=== PATIENT | female | born 1985 | race Two or more races ===

== ENCOUNTER 2025-02-28 21:40 | Emergency (ER) | payer OTHER, MEDICAID, SELFPAY ==
[2025-02-28 21:44] VITALS: BP 132/85; PULSE 99; RESP 20; TEMP 36.7; O2SAT 96; BMI 33.6
--- NOTE | 2025-02-28 22:11 | PD.EDVAGBL ---
ED OB Contraction Preg RMI/HPI General Chief complaint: General Adult/Misc Complain Stated complaint: POSS RETAINED TAMPON 6 DAYS Time Seen by Provider: 02/28/25 22:50 Arrival date/time: 02/28/25 21:40 RME / HPI RME / HPI Narrative: This section includes all my notes and documentations, including HPI, PE, and ED course. Sheldon Cartwright MD HPI: 39yo female here with possible tampon stuck in her vagina. Patient's last day of her period was 02/23/25, and thinks she may have left a tampon inside. She has since developed foul smelling vaginal discharge, pelvic pain. No fever. No other complaints reported. ROS: All negative except as documented in HPI. Physical Exam: General: Alert and oriented. No acute distress when remaining still. Eyes: Conjunctivae and lids clear. ENT: No nasal congestion. Neck: Supple. Heart: RRR. Lungs: No respiratory distress. Good air movement. No rhonchi, wheezing, rales. Abdomen: Soft and nontender. Normal bowel sounds. No distension. No rebound or guarding. Back: No CVA tenderness. Skin: Warm and dry. Neuro: Alert and oriented X 3. Speculum: No FB noted. No cervical motion tenderness. Foul-smelling discharge noted. I reviewed all diagnostic test results. My interpretation of the chest x-ray is NAD. My review of the transvaginal US report is NAD. Blood tests unremarkable. UA unremarkable. At this point, diagnoses include vaginitis. Patient requested being treated for all causes of STD. Treatment here included IV fluid, oral potassium, Morphine 4 mg IV, Zofran 4 mg IV, oral Diflucan 200 mg, oral Flagyl 2000 mg, Rocephin 1 g IV, and oral azithromycin 1000 mg. She felt much better. Recommend outpatient follow-up. Based on my best medical judgment, made decision no further evaluation or treatment indicated at this time. Patient understands and agrees to the discharge instructions customized and printed, see below. Discharge Instructions from Dr. Cartwright printed for you: 1. As you requested, you were treated for all common causes of vaginitis. Including gonorrhea and chlamydia and trichomonas and bacterial vaginosis and yeast. 2. There is no foreign body in the vagina. 3. There is no serious infection, such as sepsis. 4. See a private doctor on 03/04/2025 for recheck and further care. Ask to review all test results and official radiology reports, to make sure you receive all necessary follow-ups and monitoring. If needed, ask for referral to see head of ethics and compliance. 5. Seek immediate medical care with worsening or with any concerns. Sheldon Cartwright MD Related Data Home Medications ?Medication ?Instructions ?Recorded ?Confirmed docusate sodium 100 mg capsule 100 mg PO BID 06/21/18 06/21/18 ferrous sulfate 325 mg (65 mg 325 mg PO BID 06/21/18 06/26/18 iron) tablet (iron) fluticasone propionate 50 2 spray intranasal QDAY 06/21/18 06/21/18 mcg/actuation nasal spray,suspension loratadine 10 mg tablet (Claritin) 10 mg PO QDAY 06/21/18 06/26/18 vit no.95-ferrous 1 tab PO QDAY 06/21/18 06/26/18 fumarate 28 mg-folic acid 800 mcg tablet () Previous Rx's ?Medication ?Instructions ?Recorded hydrocodone 5 mg-acetaminophen 300 1 tab PO QID PRN headache #20 tabs 25/18 mg tablet (Vicodin) hydrocodone 5 mg-acetaminophen 300 1 tab PO QID PRN pain #20 tabs 06/29/18 mg tablet (Vicodin) clotrimazole 1 % vaginal cream See Rx Instructions .Route 02/23/20 (Gyne-Lotrimin 7) .COMPLEX #45 grams fluconazole 150 mg tablet 150 mg PO .x1 #1 tab 02/23/20 (Diflucan) nystatin 100,000 unit/gram topical 1 applicatio topical BID #30 grams 02/23/20 cream metoclopramide HCl 10 mg tablet 10 mg PO .tid prn PRN nausea and 12/19/20 (Reglan) vomiting #20 tabs pantoprazole 40 mg tablet,delayed 40 mg PO QDAY #14 tabs 12/19/20 release (Protonix) hydrocodone 5 mg-acetaminophen 325 1 tab PO BID PRN pain #4 tabs 02/15/24 mg tablet Allergies Allergy/AdvReac Type Severity Reaction Status Date / Time ibuprofen Allergy Severe lip Verified 02/15/24 08:35 swelling/DIFF BREATHING Review of Systems Review of Systems Systems Reviewed: All systems reviewed, normal except as documented Past Medical History Past Medical History NEUROLOGIC: Positive Neurological Disorders and Migraine; Negative Seizures CARDIAC: Positive Cardiac Disorders, Hypercholesterolemia and Hypertension; Negative Congestive Heart Failure RESPIRATORY: Positive Asthma and Bronchitis; Negative Chronic Obstructive Pulmonary Disease (COPD) GASTROINTESTINAL: Positive Gastrointestinal Disorders and Obesity; Negative Hepatitis or Colorectal Cancer GENITOURINARY: Negative Genitourinary Disorders, Renal Disease or Prostate Cancer REPRODUCTIVE: Positive Previous Pregnancies; Negative Breast Cancer, Endometriosis, Genital Herpes, Gonorrhea, Pelvic Inflammatory Disease, Syphilis, Testicular Cancer or Uterine Prolapse MUSCULOSKELETAL: Negative Musculoskeletal Disorders or Bone Cancer ENDOCRINE: Positive Endocrine Disorders and Diabetes Mellitus Type 2; Negative Diabetes Mellitus Type 1 HEMATOLOGIC: Positive Blood Disorders and Anemia PSYCHO/SOCIAL: Positive Depression and Anxiety OTHER HISTORY: Positive Hospitalization and Chicken Pox; Negative Autoimmune Disease, Blood Transfusions, Blood Transfusion Reaction, Anesthesia Reactions, Organ Transplant, Chemotherapy, Radiation Therapy, Hyperbaric Therapy, MRSA, VRSA, Vancomycin-Resistant Enterococci, Human Immunodeficiency Virus (HIV), Measles, Mumps, Rubella ([place] Measles), Pertussis, Clostridium Difficile, Breast Cancer, Cervical Cancer, Colorectal Cancer, Lung Cancer, Ovarian Cancer, Prostate Cancer or Testicular Cancer Family History FAMILY HISTORY: Positive Family Cardiac Disorders and Family Surgery; Negative Family Psychiatric Problems, Family Respiratory Disorders, Family Gastrointestinal Problems, Family Cancer or Family Anesthesia Reaction Surgical History SURGICAL: Negative Section or Organ Transplant Social History SMOKING STATUS: Never smoker SECOND HAND EXPOSURE: No ED Exam Narrative Physical exam: As noted in HPI. Course Quality Measures none Orders Category Date Time Status Saline [Insert IV] NOW Care 02/28/25 22:58 Active Straight [In and Out Catheter] X1 Care 02/28/25 22:58 Active US transvaginal Stat Exams 03/01/25 01:14 Ordered XR chest 1V portable Stat Exams 02/28/25 22:52 Completed BMP [Basic Metabolic Panel] Stat Lab 02/28/25 23:17 Completed Blood Culture (Lab) Stat Lab 02/28/25 23:17 Received CBC Stat Lab 02/28/25 23:17 Completed CRP [C-Reactive Protein] Stat Lab 02/28/25 23:17 Completed ESR [Sed Rate (ESR)] Stat Lab 02/28/25 23:17 Completed HCG,Qualitative Serum Stat Lab 02/28/25 23:17 Completed Lactate (Lactic Acid) Stat Lab 02/28/25 23:17 Completed Lactic Acid, 3 HR Stat Lab 03/01/25 03:10 Received Magnesium Stat Lab 02/28/25 23:17 Completed Procalcitonin Stat Lab 02/28/25 23:17 Completed UA, C/S IF [Urinalysis, C/S if Indicated] Stat Lab 03/01/25 00:35 Completed Azithromycin Po [Zithromax PO] Med 03/01/25 02:49 Discontinued 1,000 mg PO X1 ONE Fluconazole [Diflucan] Med 03/01/25 02:49 Discontinued 200 mg PO X1 ONE KCL 10% Liq UDC 15 ML Med 03/01/25 00:22 Discontinued 40 meq PO X1 ONE Morphine Inj Med 02/28/25 22:58 Discontinued 4 mg IVP X1 ONE Ondansetron Inj [Zofran Inj] Med 02/28/25 22:58 Discontinued 4 mg IVP X1 ONE Sodium Chloride 0.9% 1000 ml [Ns] 1,000 ml Med 02/28/25 22:58 Discontinued IV 999 mls/hr Sodium Chloride 0.9% 1000 ml [Ns] 1,000 ml Med 03/01/25 00:43 Discontinued IV 999 mls/hr cefTRIAXone/D5w 1gm IV premix [Rocephin/D5w 1gm IV Med 03/01/25 02:49 Discontinued premix] 1 gm in 50 ml IV X1 metroNIDAZOLE [Flagyl] Med 03/01/25 02:49 Discontinued 2,000 mg PO X1 ONE Vital Signs Vital signs: Vital Signs Temperature 98.0 F 02/28/25 21:44 Pulse Rate 99 02/28/25 21:44 Respiratory Rate 20 02/28/25 21:44 Blood Pressure 132/85 H 02/28/25 21:44 Pulse Oximetry (%) 96 02/28/25 21:44 Oxygen Delivery Method Room Air 02/28/25 21:44 Vaginal Bleeding MDM Narrative MDM Narrative: 39yo female here with possible tampon stuck in her vagina. Patient's last day of her period was 02/23/25, and thinks she may have left a tampon inside. She has since developed foul smelling vaginal discharge, pelvic pain. No fever. No other complaints reported. Patient data External records reviewed:: [facility] previous records (Per chart review, patient was seen here on 04/19/23 for acute foreign body of vagina.) Clinical information provided by:: patient Social determinants that could affect healthcare access:: none Patient has the following chronic illnesses:: DM, HTN, HLD How is presenting disease/condition affected by chronic disease/condition?: uneffected by Evaluation data The following diagnostics were reviewed and interpreted by me:: lab results and radiology exam(s) Lab and/or radiology exams considered but not ordered:: none Interpretation Summary: I reviewed all diagnostic test results. My interpretation of the chest x-ray is NAD. My review of the transvaginal US report is NAD. Blood tests unremarkable. UA unremarkable. Medications / Prescriptions Medications or Prescriptions considered but not ordered:: none Medication administrations:: Medication Administration History Discontinued Medications Azithromycin (Azithromycin 250 Mg Tablet) 1,000 mg PO X1 ONE Stop: 03/01/25 02:50 Last Admin: 03/01/25 03:17 Dose: 1,000 mg Documented By: JOHNNY Fluconazole (Fluconazole 100 Mg Tablet) 200 mg PO X1 ONE Stop: 03/01/25 02:50 Last Admin: 03/01/25 03:27 Dose: 200 mg Documented By: JOHNNY Sodium Chloride (Ns) 1,000 mls @ 999 mls/hr IV .Q1H1M ONE Stop: 02/28/25 23:58 Last Infusion: 03/01/25 01:01 Dose: Infused Documented By: Admin: 03/01/25 00:00 Dose: 999 mls/hr Documented By: JOHNNY Sodium Chloride (Ns) 1,000 mls @ 999 mls/hr IV .Q1H1M ONE Stop: 03/01/25 01:43 Last Infusion: 03/01/25 02:24 Dose: Infused Documented By: Admin: 03/01/25 01:23 Dose: 999 mls/hr Documented By: JOHNNY Ceftriaxone Sodium/Dextrose (Rocephin/D5w 1gm Iv Premix) 1 gm in 50 mls @ 100 mls/hr IV X1 ONE Stop: 03/01/25 03:18 Last Admin: 03/01/25 03:17 Dose: 100 mls/hr Documented By: JOHNNY Metronidazole (Metronidazole 250 Mg Tablet) 2,000 mg PO X1 ONE Stop: 03/01/25 02:50 Last Admin: 03/01/25 03:18 Dose: 2,000 mg Documented By: JOHNNY Morphine Sulfate (Morphine Sulf Inj 10 Mg/Ml Vial) 4 mg IVP X1 ONE Stop: 02/28/25 22:59 Last Admin: 02/28/25 23:58 Dose: 4 mg Documented By: CG Ondansetron HCl (Ondansetron Inj 2 Mg/Ml Inj 2 Ml) 4 mg IVP X1 ONE; Protocol Stop: 02/28/25 22:59 Last Admin: 02/28/25 23:59 Dose: 4 mg Documented By: CG Potassium Chloride (Potassium Chloride 10% 20 Meq/15 Ml Udc) 40 meq PO X1 ONE Stop: 03/01/25 00:23 Last Admin: 03/01/25 01:22 Dose: 40 meq Documented By: CG Treatment here included IV fluid, oral potassium, Morphine 4 mg IV, Zofran 4 mg IV, oral Diflucan 200 mg, oral Flagyl 2000 mg, Rocephin 1 g IV, and oral azithromycin 1000 mg. Consultations Consultation(s) initiated? (list below): No Diagnosis Vaginal Bleeding Differential Diagnosis: missed , threatened , dysfunctional uterine bleeding, menometrorrhagia, incomplete , ectopic without intrauterine , vaginal bleeding and other (Vaginitis, ovarian torsion, PID) Most likely diagnosis given after review of the tests above:: Vaginitis Admission Indicated Admission indicated?: not indicated Explain why admission is indicated or not indicated:: With significant improvement and no condition needing emergent intervention, there was no indication for admission. Admission Request Was there a request for admission?: No Disposition Plan Disposition Plan: Discharge Discharge Attestation Discharge Attestation: The patient and all family members were given an opportunity to ask questions and understood the discharge instructions. Discharge instructions specifically effects, indications for sooner follow up or return to the emergency department, and the expected course of current diagnosis. Patient condition: Stable Discharge Plan Plan Patient Disposition: HOME (Self Care) Prescriptions/Referrals Prescriptions/Med Rec: No Action ferrous sulfate [iron] 325 mg (65 mg iron) Tablet 325 mg PO BID docusate sodium 100 mg Capsule 100 mg PO BID fluticasone propionate 50 mcg/actuation Alliance,Suspension 2 spray INTRANASAL QDAY loratadine [Claritin] 10 mg Tablet 10 mg PO QDAY PNV cmb#95-ferrous fumarate-FA [] 28 mg iron- 800 mcg Tablet 1 tab PO QDAY hydrocodone-acetaminophen [Vicodin] 5-300 mg tablet 1 tab PO QID MDD 4 PRN (Reason: pain) Qty: 20 0RF hydrocodone-acetaminophen [Vicodin] 5-300 mg tablet 1 tab PO QID MDD 4 PRN (Reason: headache) Qty: 20 0RF fluconazole [Diflucan] 150 mg tablet 150 mg PO .x1 Qty: 1 0RF clotrimazole [Gyne-Lotrimin 7] 1 % cream See Rx Instructions .ROUTE .COMPLEX Qty: 45 0RF Rx Instructions: 1 applicator full PV QD x 7 days nystatin 100,000 unit/gram cream 1 applicatio TOPICAL BID Qty: 30 0RF metoclopramide HCl [Reglan] 10 mg tablet 10 mg PO .tid prn PRN (Reason: nausea and vomiting) Qty: 20 0RF pantoprazole [Protonix] 40 mg tablet,delayed release (DR/EC) 40 mg PO QDAY Qty: 14 0RF hydrocodone-acetaminophen 5-325 mg tablet 1 tab PO BID MDD 10mg PRN (Reason: pain) Qty: 4 0RF Referrals: No Primary/Family,Physician [Primary Care Provider] - In 1 week Problem List Clinical Impression: Vaginitis Patient/Caregiver Discharge Instructions Discharge Activity: activity as tolerated Education Materials: ED Pelvic Pain, Unknown Cause Additional Instructions: Discharge Instructions from Dr. Cartwright printed for you: 1. As you requested, you were treated for all common causes of vaginitis. Including gonorrhea and chlamydia and trichomonas and bacterial vaginosis and yeast. 2. There is no foreign body in the vagina. 3. There is no serious infection, such as sepsis. 4. See a private doctor on 03/04/2025 for recheck and further care. Ask to review all test results and official radiology reports, to make sure you receive all necessary follow-ups and monitoring. If needed, ask for referral to see head of ethics and compliance. 5. Seek immediate medical care with worsening or with any concerns. Print Language: [place]er Stand Alone Forms: [employer]i Award Info., Patient Portal Info Letter
--- NOTE | 2025-02-28 22:52 | XR_ITS ---
Examination: AP chest single view Technique AP portable upright chest single view Date and time: February 28, 2025 at 1110 hours Comparison April 11, 2007 INDICATIONS: Shortness of breath chest pain today. FINDINGS: No significant cardiac enlargement No pneumonia or pulmonary edema Lordotic chest IMPRESSION: No active disease
[2025-02-28 23:24] LABS: Lactate (Lactic Acid) 2.5 mMol/L (0.4-2.0)
[2025-02-28 23:27] LABS: Basophils # (Auto) 0.0 Thou/mm3 (0.0-0.2); Basophils % (Auto) 0 % (0-2.5); Eosinophils # (Auto) 0.1 Thou/mm3 (0.0-0.5); Eosinophils % (Auto) 1 % (0-10); Hematocrit 37.0 % (36.0-46.0); Hemoglobin 13.5 g/dL (12.0-16.0); Immature Granulocytes Auto 0.03 Thou/mm3 (0.00-0.00); Lymphocytes # (Auto) 4.1 Thou/mm3 (1.0-4.8); Lymphocytes % (Auto) 49 % (10-50); Mean Corpuscular HGB Conc 36.5 g/dl (31.0-37.0); Mean Corpuscular Hemoglobin 31.0 pg (25.0-35.0); Mean Corpuscular Volume 85 fL (80-100); Monocytes # (Auto) 0.5 Thou/mm3 (0.0-0.8); Monocytes % (Auto) 6 % (0-12); Neutrophils # (Auto) 3.7 Thou/mm3 (1.8-7.7); Neutrophils % (Auto) 44 % (37-80); Nucleated Red Blood Cell # 0.00 Thou/mm3 (0.00-0.00); Nucleated Red Blood Cell % 0 /100 WBC (0); Platelet Count 295 Thou/mm3 (140-440); RDW Standard Deviation 41.4 fL (36.4-46.3); Red Blood Count 4.35 Miln/mm3 (4.00-5.20); White Blood Count 8.4 Thou/mm3 (3.6-11.0)
[2025-02-28 23:55] VITALS: BP 142/81; PULSE 83; RESP 18; TEMP 36.8; O2SAT 93
[2025-02-28] MEDS: MORPHINE SULF INJ 10 MG/ML VIAL 4 MG IVP (23:58)
[2025-02-28 23:59] LABS: Sed Rate (ESR) 11 mm/hr (0-20)
[2025-02-28] MEDS: ONDANSETRON INJ 2 MG/ML INJ 2 ML 4 MG IVP (23:59)
[2025-03-01 00:02] LABS: HCG,Qualitative Serum Negative
[2025-03-01 00:06] LABS: Anion Gap 12 (7-16); BUN/Creatinine Ratio 13 Ratio (12-20); Blood Urea Nitrogen 9 mg/dL (9-23); C-Reactive Protein < 0.5 mg/dL (0.0-0.9); Calcium 9.2 mg/dL (8.3-10.6); Carbon Dioxide 24.3 mMol/L (20.0-31.0); Chloride 102 mMol/L (98-107); Creatinine (Component) 0.7 mg/dL (0.6-1.3); Estimated Creatinine Clearance 103.9 mL/min (>60); Glucose 209 mg/dL (74-106); Magnesium 1.7 mg/dL (1.6-2.6); Osmolality,Calculated 280 (275-295); Potassium 3.2 mMol/L (3.4-5.1); Procalcitonin 0.05 ng/ml (0.0-0.49); Sodium 138 mMol/L (136-145); eGFR > 60 See Note
[2025-03-01 00:43] LABS: Collection Type, Urine Clean Catch
[2025-03-01 00:49] LABS: Bilirubin,Urine Negative (Negative); Blood,Urine Negative (Negative); Clarity,Urine Clear (Clear/Hazy); Color,Urine Lt-Yellow (Lt Yel-Yel); Culture Indicated,Urine Not Indicated; Glucose, Urine 4+ (Negative); Ketones,Urine Negative (Negative); Leukocyte Esterase,Urine Negative (Negative); Nitrite,Urine Negative (Negative); PH,Urine 6.0 (5.0-7.0); Protein,Urine Negative (Neg - Trace); RBC,Urine 1 /hpf (0-3); Specific Gravity,Urine 1.040 (1.001-1.035); Squamous Epithelial Cell,Urine 2 /hpf (0-5); Urobilinogen,Urine Negative mg/dL (0.0-1.0); WBC,Urine 1 /hpf (0-5)
--- NOTE | 2025-03-01 01:14 | XR_ITS ---
Examination: Transvaginal ultrasound of the pelvis, complete Technique: Transvaginal sonographic images pelvis performed using david scale imaging Exam date and time: March 01, 2025 0231 hours INDICATIONS: Fever pelvic pain beginning February 17, 2025 FINDINGS: Uterus 8.2 cm endometrial stripe 0.6 cm No uterine mass or intrauterine gestation Right ovary 3.7 cm arterial flow Left ovary is obscured by bowel gas IMPRESSION: No uterine mass or intrauterine gestation Limited study, left ovary not visualized.
[2025-03-01] MEDS: POTASSIUM CHLORIDE 10% 20 MEQ/15 ML UDC 40 MEQ PO (01:22)
[2025-03-01] MEDS: SODIUM CHLORIDE 0.9% 1000 ML 1,000 ML 999 ML IV ×2 (01:23)
[2025-03-01 02:24] LABS: Reflex Lactate? Y
[2025-03-01] MEDS: cefTRIAXone/D5w 1gm IV premix 1 GM/50 ML BAG IV (03:17)
[2025-03-01] MEDS: AZITHROMYCIN 250 MG TABLET 1000 MG PO (03:17)
[2025-03-01 03:25] LABS: Lactic Acid, 3 HR 1.2 mMol/L (0.4-2.0)
[2025-03-01] MEDS: FLUCONAZOLE 100 MG TABLET 200 MG PO (03:27)
[2025-03-01 04:16] VITALS: BP 124/81; PULSE 81; RESP 16; O2SAT 95
--- NOTE | 2025-03-01 04:16 | PRELIM_ITS ---
Pelvic ultrasound ( transvaginal) with Doppler and wave Doppler spectral analysis. March 01, 2025 0231 hours Clinical history: Pelvic pain and vaginal FB. Technique: Real-time, grayscale, transabdominal and transvaginal pelvic ultrasound was performed using Duplex scanning including arterial inflow, venous outflow, color and spectral Doppler. Comparison: None available at the time of this report Findings: The uterus is normal in size measuring 8.2 x 4.6 x 5.9 cm. The endometrium is unremarkable and measures 0.6 cm. Nabothian cysts noted. The right ovary measures 3.7 x 1.6 x 2.8 cm and is unremarkable. The left ovary was not visualized. The right ovary demonstrates color flow and spectral waveforms on Doppler evaluation. There is no adnexal mass. There is no free fluid on the submitted images. Impression: Left ovary was not visualized, consider correlation with MRI if clinically indicated. Nabothian cysts noted. Report Electronically Signed By: Filemon Vogel 03/01/2025 4:15:54 AM [EST]
== END 2025-03-01 04:17 | disposition home or self-care (01) ==
PROVIDERS: Emergency Provider Emergency Medicine
DX: N76.0 Acute vaginitis (principal); R06.02 Shortness of breath; R07.9 Chest pain, unspecified
CPT/HCPCS: 36415; 71045; 76830; 80048; 81001; 83605; 83735; 84145; 84703; 85025; 85652; 86140; 87040; 96361; 96365; 96375; 99284; J0696; J2270; J2405; J7030; A9270

== ENCOUNTER 2025-03-31 04:16 | Emergency (ER) | payer OTHER, MEDICAID, SELFPAY ==
[2025-03-31 04:18] VITALS: BP 141/87; PULSE 92; RESP 18; TEMP 36.5; O2SAT 94; BMI 33.6
--- NOTE | 2025-03-31 04:52 | PD.EDDENTL ---
ED Dental RME/HPI General Chief complaint: Dental/Oral/Throat Stated complaint: PAIN L SIDE OF FACE/L UPPER MOLAR Time Seen by Provider: 03/31/25 04:34 Arrival date/time: 03/31/25 04:16 This is a case of 40-year-old female with no medical history came in in the emergency room due to dental pain mostly on the central tooth and left upper molar for 4 days patient states that her dental appointment is in 2 weeks worsening of the pain this patient decided to sought consult here in the emergency room Limitations: no limitations Related Data Home Medications ?Medication ?Instructions ?Recorded ?Confirmed docusate sodium 100 mg capsule 100 mg PO BID 06/21/18 06/21/18 ferrous sulfate 325 mg (65 mg 325 mg PO BID 06/21/18 06/26/18 iron) tablet (iron) fluticasone propionate 50 2 spray intranasal QDAY 06/21/18 06/21/18 mcg/actuation nasal spray,suspension loratadine 10 mg tablet (Claritin) 10 mg PO QDAY 06/21/18 06/26/18 vit no.95-ferrous 1 tab PO QDAY 06/21/18 06/26/18 fumarate 28 mg-folic acid 800 mcg tablet () Previous Rx's ?Medication ?Instructions ?Recorded hydrocodone 5 mg-acetaminophen 300 1 tab PO QID PRN headache #20 tabs 25/18 mg tablet (Vicodin) hydrocodone 5 mg-acetaminophen 300 1 tab PO QID PRN pain #20 tabs 06/29/18 mg tablet (Vicodin) clotrimazole 1 % vaginal cream See Rx Instructions .Route 02/23/20 (Gyne-Lotrimin 7) .COMPLEX #45 grams fluconazole 150 mg tablet 150 mg PO .x1 #1 tab 02/23/20 (Diflucan) nystatin 100,000 unit/gram topical 1 applicatio topical BID #30 grams 02/23/20 cream metoclopramide HCl 10 mg tablet 10 mg PO .tid prn PRN nausea and 12/19/20 (Reglan) vomiting #20 tabs pantoprazole 40 mg tablet,delayed 40 mg PO QDAY #14 tabs 12/19/20 release (Protonix) hydrocodone 5 mg-acetaminophen 325 1 tab PO BID PRN pain #4 tabs 02/14/ mg tablet clindamycin HCl 300 mg capsule 300 mg PO Q6H 10 days #40 caps 03/31/25 hydrocodone 5 mg-acetaminophen 325 1 tab PO Q6H PRN pain #10 tabs 03/31/25 mg tablet Allergies Allergy/AdvReac Type Severity Reaction Status Date / Time ibuprofen Allergy Severe lip Verified 03/31/25 04:22 swelling/DIFF BREATHING Review of Systems Review of Systems Systems Reviewed: All systems reviewed, normal except as documented Constitutional Constitutional: Reports system reviewed and no additional complaints, except as documented and Reports as per HPI Cardiovascular Cardiovascular: Reports system reviewed and no additional complaints, except as documented and Reports as per HPI Respiratory Respiratory: Reports system reviewed and no additional complaints, except as documented and Reports as per HPI Gastrointestinal Gastrointestinal: Reports system reviewed and no additional complaints, except as documented and Reports as per HPI Musculoskeletal Musculoskeletal: Reports system reviewed and no additional complaints, except as documented and Reports as per HPI Neurologic Neurologic: Reports system reviewed and no additional complaints, except as documented and Reports as per HPI Past Medical History Past Medical History NEUROLOGIC: Positive Neurological Disorders and Migraine; Negative Seizures CARDIAC: Positive Cardiac Disorders, Hypercholesterolemia and Hypertension; Negative Congestive Heart Failure RESPIRATORY: Positive Asthma and Bronchitis; Negative Chronic Obstructive Pulmonary Disease (COPD) GASTROINTESTINAL: Positive Gastrointestinal Disorders and Obesity; Negative Hepatitis or Colorectal Cancer GENITOURINARY: Negative Genitourinary Disorders, Renal Disease or Prostate Cancer REPRODUCTIVE: Positive Previous Pregnancies; Negative Breast Cancer, Endometriosis, Genital Herpes, Gonorrhea, Pelvic Inflammatory Disease, Syphilis, Testicular Cancer or Uterine Prolapse MUSCULOSKELETAL: Negative Musculoskeletal Disorders or Bone Cancer ENDOCRINE: Positive Endocrine Disorders and Diabetes Mellitus Type 2; Negative Diabetes Mellitus Type 1 HEMATOLOGIC: Positive Blood Disorders and Anemia PSYCHO/SOCIAL: Positive Depression and Anxiety OTHER HISTORY: Positive Hospitalization and Chicken Pox; Negative Autoimmune Disease, Blood Transfusions, Blood Transfusion Reaction, Anesthesia Reactions, Organ Transplant, Chemotherapy, Radiation Therapy, Hyperbaric Therapy, MRSA, VRSA, Vancomycin-Resistant Enterococci, Human Immunodeficiency Virus (HIV), Measles, Mumps, Rubella ([place] Measles), Pertussis, Clostridium Difficile, Breast Cancer, Cervical Cancer, Colorectal Cancer, Lung Cancer, Ovarian Cancer, Prostate Cancer or Testicular Cancer Family History FAMILY HISTORY: Positive Family Cardiac Disorders and Family Surgery; Negative Family Psychiatric Problems, Family Respiratory Disorders, Family Gastrointestinal Problems, Family Cancer or Family Anesthesia Reaction Surgical History SURGICAL: Negative Section or Organ Transplant Social History SMOKING STATUS: Never smoker SECOND HAND EXPOSURE: No ED Exam General Limitations: Present no limitations General appearance: Present alert, in no apparent distress and other (Is awake alert oriented not in distress not toxic looking) Head Head exam: Present atraumatic, normocephalic and normal inspection Eye Eye exam: Present normal appearance, PERRL and EOMI ENT ENT exam: Present normal exam, normal oropharynx and mucous membranes moist Expanded ENT Exam Mouth exam: Present normal external inspection and tongue normal; Absent drooling, trismus, lip swelling, tongue elevation, tongue swelling or laceration Teeth exam: Present dental tenderness # Teeth numbered:  1. Dental Tenderness (Tooth number 03/23/2010 1112 mild tenderness mild gum swelling no abscess no cellulitis) Neck Neck exam: Present normal inspection, full ROM and trachea midline Chest Chest inspection: Present normal inspection and symmetric chest wall rise Respiratory Respiratory exam: Present normal lung sounds bilaterally; Absent respiratory distress, wheezes, stridor, accessory muscle use or prolonged expiratory phase Cardiovascular Cardiovascular exam: Present regular rate, normal rhythm and normal heart sounds; Absent bradycardia, tachycardia, irregular rhythm or systolic murmur Abdominal Exam Abdominal exam: Present soft and normal bowel sounds; Absent distention, tenderness, guarding, rebound, rigidity, diminished bowel sounds, hypoactive bowel sounds or organomegaly Extremities Exam Extremities exam: Present normal inspection and full ROM Back Exam Back exam: Present normal inspection and full ROM Neurological Exam Neurological exam: Present alert, oriented X3, CN II-XII intact, normal gait and reflexes normal; Absent motor sensory deficit Psychiatric Psychiatric exam: Present normal affect and normal mood Skin Skin exam: Present warm, dry, intact and normal color Course Quality Measures none Orders Category Date Time Status Clindamycin [Cleocin] Med 03/31/25 04:51 Discontinued 300 mg PO X1 ONE HYDROcodone*/APAP 5/325 [[place] 5/325] Med 03/31/25 04:51 Discontinued 1 tab PO X1 ONE Vital Signs Vital signs: Vital Signs Temperature 97.7 F 03/31/25 04:18 Pulse Rate 92 03/31/25 04:18 Respiratory Rate 18 03/31/25 04:18 Blood Pressure 141/87 H 03/31/25 04:18 Pulse Oximetry (%) 94 L 03/31/25 04:18 Patient is afebrile not tachycardic not tachypneic BP stable not hypoxic oxygen saturation is 94% on room air Dental / Oral MDM Narrative MDM Narrative:: This is a case of 40-year-old female with no medical history came in in the emergency room due to dental pain mostly on the central tooth and left upper molar for 4 days patient states that her dental appointment is in 2 weeks worsening of the pain this patient decided to sought consult here in the emergency room physical examination patient is awake alert oriented not in distress noted mild to moderate tenderness when tapping by a tongue depressor on tooth 03/23/2010 1112 with no tooth decay no tooth fracture no gum swelling or abscess no cellulitis no abscess based on my physical examination patient symptoms suggestive of tooth infection patient was given [place] and clindamycin here in the emergency room and discharged with the same symptoms she was advised to follow-up with PCP in 2 days for evaluation and called his then this for reevaluation in 2 days and possible dental procedure for any worsening symptoms return to the emergency room immediately or call 911 Patient was discharged with comfortable condition walking with stable gait. Patient verbalized no further complains explained diagnosis and answered patient question. Patient is comfortable with the proposed management plan including the need to follow up with his/her primary care physician and any specialist if applicable Discussed patient for any urgent condition or worsening sx, He/She needed to go to emergency room immediately or call 911. Patient acknowledge the responsibility to follow up as instructed and to monitor her/his symptoms. For any persistence of the symptoms for more than 3-5 days return precaution advised. Discussed the result of the test and was given printed discharge instruction Patient data External records reviewed:: [facility] previous records Clinical information provided by:: patient Social determinants that could affect healthcare access:: none Patient has the following chronic illnesses:: None How is presenting disease/condition affected by chronic disease/condition?: no chronic disease Evaluation data The following diagnostics were reviewed and interpreted by me:: other (specify) Lab and/or radiology exams considered but not ordered:: None Interpretation Summary: None Medications / Prescriptions Medications or Prescriptions considered but not ordered:: Given Medication administrations:: Medication Administration History Discontinued Medications Hydrocodone Bitart/Acetaminophen (Hydrocodone/Apap 5/325 Tablet) 1 tab PO X1 ONE Stop: 03/31/25 04:52 Clindamycin HCl (Clindamycin 150 Mg Capsule) 300 mg PO X1 ONE Stop: 03/31/25 04:52 Given Consultations Consultation(s) initiated? (list below): No Diagnosis Dental Differential Diagnosis: dental caries, toothache, dental abscess and fracture of tooth Most likely diagnosis given after review of the tests above:: Tooth infection Admission Indicated Admission indicated?: not indicated Explain why admission is indicated or not indicated:: Not indicated Admission Request Was there a request for admission?: No Admission Attestation Admission request attestation: Not indicated Disposition Plan Disposition Plan: Discharge Discharge Attestation Discharge Attestation: The patient and all family members were given an opportunity to ask questions and understood the discharge instructions. Discharge instructions specifically effects, indications for sooner follow up or return to the emergency department, and the expected course of current diagnosis. Patient condition: Stable Discharge Plan Plan Patient Disposition: HOME (Self Care) Patient condition on transfer: Stable Prescriptions/Referrals Prescriptions/Med Rec: New clindamycin HCl 300 mg capsule 300 mg PO Q6H 10 Days Qty: 40 0RF hydrocodone-acetaminophen 5-325 mg tablet 1 tab PO Q6H MDD max 4 tabs per day PRN (Reason: pain) Qty: 10 0RF No Action ferrous sulfate [iron] 325 mg (65 mg iron) Tablet 325 mg PO BID docusate sodium 100 mg Capsule 100 mg PO BID fluticasone propionate 50 mcg/actuation [place],Suspension 2 spray INTRANASAL QDAY loratadine [Claritin] 10 mg Tablet 10 mg PO QDAY PNV no.95-ferrous fumarate-FA [] 28 mg iron- 800 mcg Tablet 1 tab PO QDAY hydrocodone-acetaminophen [Vicodin] 5-300 mg tablet 1 tab PO QID MDD 4 PRN (Reason: pain) Qty: 20 0RF hydrocodone-acetaminophen [Vicodin] 5-300 mg tablet 1 tab PO QID MDD 4 PRN (Reason: headache) Qty: 20 0RF fluconazole [Diflucan] 150 mg tablet 150 mg PO .x1 Qty: 1 0RF clotrimazole [Gyne-Lotrimin 7] 1 % cream See Rx Instructions .ROUTE .COMPLEX Qty: 45 0RF Rx Instructions: 1 applicator full PV QD x 7 days nystatin 100,000 unit/gram cream 1 applicatio TOPICAL BID Qty: 30 0RF metoclopramide HCl [Reglan] 10 mg tablet 10 mg PO .tid prn PRN (Reason: nausea and vomiting) Qty: 20 0RF pantoprazole [Protonix] 40 mg tablet,delayed release (DR/EC) 40 mg PO QDAY Qty: 14 0RF hydrocodone-acetaminophen 5-325 mg tablet 1 tab PO BID MDD 10mg PRN (Reason: pain) Qty: 4 0RF Problem List Clinical Impression: Pain, dental, Tooth infection Patient/Caregiver Discharge Instructions Education Materials: ED Dental Pain, ED Tooth Abscess Additional Instructions: Follow-up with your primary care physician in 2 days for valuation it is very important to see your dentist in 2 days for reevaluation and possible dental procedure for any worsening symptoms or any emergent concern call 911 or go to the nearest emergency room take your medication as directed finish the course of antibiotic oral care is advised Print Language: Estonian Stand Alone Forms: Desi Award Info., Patient Portal Info Letter PA/PRODUCT CONTROL AND LOGISTICS ANALYST Supervising Physician DAVIDSON/PRODUCT CONTROL AND LOGISTICS ANALYST Supervising Physician: Dr Cartwright
[2025-03-31] MEDS: HYDROcodone/APAP 5/325 TABLET 1 TAB PO (05:37)
[2025-03-31] MEDS: CLINDAMYCIN 150 MG CAPSULE 300 MG PO (05:38)
[2025-03-31] MEDS: MORPHINE SULF INJ 10 MG/ML VIAL 4 MG IM (06:26)
== END 2025-03-31 06:35 | disposition home or self-care (01) ==
PROVIDERS: Emergency Provider Family Medicine; PCP Nurse Practitioner Family
DX: K04.7 Periapical abscess without sinus (principal); I10 Essential (primary) hypertension; E78.00 Pure hypercholesterolemia, unspecified; E66.9 Obesity, unspecified; Z68.33 Body mass index [BMI] 33.0-33.9, adult; Z79.899 Other long term (current) drug therapy; Z88.6 Allergy status to analgesic agent
CPT/HCPCS: 96372; 99283; J2270; A9270

== ENCOUNTER 2025-05-31 04:15 | Emergency (ER) | payer OTHER, MEDICAID, SELFPAY ==
[2025-05-31 04:18] VITALS: BP 159/95; PULSE 110; RESP 18; TEMP 36.9; O2SAT 95; BMI 34.0
--- NOTE | 2025-05-31 04:20 | EKG_ITS ---
[facility] Test Date: 2025-05-31 Pat Name: CALLUM TYSON Department: Room: - Gender: Female Registered Respiratory Therapist: : 1985 Requested By: Syed Dodson Order Number: [id number] Reading MD: Syed Dodson Measurements Intervals [place] Rate: 97 P: 52 SC: 166 QRS: -32 QRSD: 102 T: 3 QT: 298 QTc: 379 Interpretive Statements SINUS RHYTHM LEFT AXIS DEVIATION [QRS AXIS < -30] PATTERN CONSISTENT WITH PULMONARY DISEASE NONSPECIFIC T-WAVE ABNORMALITY No previous ECG available for comparison /store/[email or web address]/[id number].pdf
--- NOTE | 2025-05-31 04:43 | XR_ITS ---
EXAMINATION: PA lateral chest 2 views TECHNIQUE: Upright PA and lateral chest 2 views Date and time: May 31, 2025, 0458 hours, comparison February 28, 2025 INDICATIONS: Cardiac palpitation chest pain 5 days FINDINGS: Normal heart size Lungs are clear. Osseous structures are intact IMPRESSION: No active disease
--- NOTE | 2025-05-31 04:44 | PD.EDRME ---
Rapid Medical Screening Exam E Arrival date/time: 05/31/25 04:15 40F with history of anxiety (on Effexor) presents to ED with CP, SOB, and anxiety due to increased stress in life recently, including son's autism diagnosis. Patient denies SI/HI. Also, patient has been experiencing pelvic pain/cramping (but no bleeding) and is 1 week late on her cycle. Patient is afraid she might be again, despite having a tubal ligation done and a neg at-home test. Finally, patient has had 2 weeks of cough and congestion. Chief Complaint: Chest Pain Vital signs: Vital Signs Temperature 98.5 F 05/31/25 04:18 Pulse Rate 110 H 05/31/25 04:18 Respiratory Rate 18 05/31/25 04:18 Blood Pressure 159/95 H 05/31/25 04:18 Pulse Oximetry (%) 95 05/31/25 04:18 Oxygen Delivery Method Room Air 05/31/25 04:18
[2025-05-31 05:50] LABS: Collection Type, Urine Clean Catch
[2025-05-31 06:02] LABS: Amphetamine/Methamp Scrn,U Negative (Negative); Barbiturate Screen,Urine Negative (Negative); Benzodiazepines Screen,Urine Negative (Negative); Benzoylecgonine Screen, Ur Negative (Negative); Fentanyl Screen,Urine Negative (Negative); Opiate Screen,Urine Negative (Negative); THC Screen,Urine Negative (Negative)
[2025-05-31 06:14] LABS: Bacteria,Urine Rare; Bilirubin,Urine Negative (Negative); Blood,Urine Negative (Negative); Clarity,Urine Clear (Clear/Hazy); Color,Urine Lt-Yellow (Lt Yel-Yel); Culture Indicated,Urine Not Indicated; Glucose, Urine 4+ (Negative); Ketones,Urine 1+ (Negative); Leukocyte Esterase,Urine Positive (Negative); Nitrite,Urine Negative (Negative); PH,Urine 5.5 (5.0-7.0); Protein,Urine Trace (Neg - Trace); RBC,Urine < 1 /hpf (0-3); Specific Gravity,Urine 1.036 (1.001-1.035); Squamous Epithelial Cell,Urine 4 /hpf (0-5); Urobilinogen,Urine Negative mg/dL (0.0-1.0); WBC,Urine 1 /hpf (0-5)
[2025-05-31 07:30] LABS: Basophils # (Auto) 0.0 Thou/mm3 (0.0-0.2); Basophils % (Auto) 1 % (0-2.5); Eosinophils # (Auto) 0.4 Thou/mm3 (0.0-0.5); Eosinophils % (Auto) 5 % (0-10); Hematocrit 41.7 % (36.0-46.0); Hemoglobin 14.4 g/dL (12.0-16.0); Immature Granulocytes Auto 0.03 Thou/mm3 (0.00-0.00); Lymphocytes # (Auto) 3.5 Thou/mm3 (1.0-4.8); Lymphocytes % (Auto) 41 % (10-50); Mean Corpuscular HGB Conc 34.5 g/dl (31.0-37.0); Mean Corpuscular Hemoglobin 30.6 pg (25.0-35.0); Mean Corpuscular Volume 89 fL (80-100); Monocytes # (Auto) 0.5 Thou/mm3 (0.0-0.8); Monocytes % (Auto) 6 % (0-12); Neutrophils # (Auto) 4.2 Thou/mm3 (1.8-7.7); Neutrophils % (Auto) 48 % (37-80); Nucleated Red Blood Cell # 0.00 Thou/mm3 (0.00-0.00); Nucleated Red Blood Cell % 0 /100 WBC (0); Platelet Count 233 Thou/mm3 (140-440); RDW Standard Deviation 44.1 fL (36.4-46.3); Red Blood Count 4.71 Miln/mm3 (4.00-5.20); White Blood Count 8.7 Thou/mm3 (3.6-11.0)
--- NOTE | 2025-05-31 07:35 | PC.NURSE ---
In to assess pt. Pt with c/o lower abd pain/cramps. Reports she is 9 days late on her period. States shes been feeling off for the past 2 weeks . Has been experiencing anxiety, chest pain, and sob. Denies chest pain and sob at this time. Pt without further complaints at this time. Workup in progress. Call light placed within reach. Plan of care ongoing.
[2025-05-31 07:37] VITALS: BP 151/90; PULSE 105; RESP 19; TEMP 36.8; O2SAT 99
[2025-05-31 07:50] LABS: Alanine Aminotransferase 23 U/L (10-49); Albumin, Serum 4.4 gm/dL (3.5-5.0); Albumin/Globulin Ratio 1.6 (1.2-2.2); Alkaline Phosphatase 111 U/L (46-116); Anion Gap 10 (7-16); Aspartate Amino Transferase 20 U/L (0-34); BUN/Creatinine Ratio 15 Ratio (12-20); Beta HCG,Quantitative < 0 mIU/mL (<5.0); Bilirubin,Total 0.4 mg/dL (0.3-1.2); Blood Urea Nitrogen 9 mg/dL (9-23); Calcium 8.9 mg/dL (8.3-10.6); Calcium (Corrected) 8.9 mg/dL (8.5-10.1); Carbon Dioxide 23.1 mMol/L (20.0-31.0); Chloride 103 mMol/L (98-107); Creatinine (Component) 0.6 mg/dL (0.6-1.3); Estimated Creatinine Clearance 120.7 mL/min (>60); Globulin 2.8 gm/dL (2.3-3.5); Glucose 243 mg/dL (74-106); Osmolality,Calculated 278 (275-295); Potassium 3.7 mMol/L (3.4-5.1); Sodium 136 mMol/L (136-145); Total Protein 7.2 gm/dL (5.7-8.2); Troponin I < 0.002 ng/mL (0.0-0.045); eGFR > 60 See Note
[2025-05-31] MEDS: DIAZEPAM 5 MG TABLET PO (07:58)
--- NOTE | 2025-05-31 08:51 | EDNOTE_ITS ---
ED Abdominal Pain RME/HPI General Chief Complaint: Chest Pain Stated complaint: CHEST PAIN AND DYSPNEA ABD PAIN Time seen by provider: 05/31/25 06:32 Arrival date/time: 05/31/25 04:15 Limitations: no limitations RME / HPI RME / HPI narrative: 05/31/25 04:15 40F with history of anxiety (on Effexor) presents to ED with CP, SOB, and anxiety due to increased stress in life recently, including son's autism diagnosis. Patient denies SI/HI. Also, patient has been experiencing pelvic pain/cramping (but no bleeding) and is 1 week late on her cycle. Patient is afraid she might be again, despite having a tubal ligation done and a neg at-home test. Finally, patient has had 2 weeks of cough and congestion. Related Data Home Medications ?Medication ?Instructions ?Recorded ?Confirmed docusate sodium 100 mg capsule 100 mg PO BID 06/21/18 06/21/18 ferrous sulfate 325 mg (65 mg 325 mg PO BID 06/21/18 1 08/26/17 iron) tablet (iron) fluticasone propionate 50 2 spray intranasal QDAY 03/0106/21/18 mcg/actuation nasal spray,suspension loratadine 10 mg tablet (Claritin) 10 mg PO QDAY 06/2106/26/18 vit no.95-ferrous 1 tab PO QDAY 06/21/1806/15 fumarate 28 mg-folic acid 800 mcg tablet () Previous Rx's ?Medication ?Instructions ?Recorded hydrocodone 5 mg-acetaminophen 300 1 tab PO QID PRN he adache #20 tabs 06/08/ mg tablet (Vicodin) hydrocodone 5 mg-acetaminophen 300 1 tab PO QID PRN pa in #20 tabs 06/29/18 mg tablet (Vicodin) clotrimazole 1 % vaginal cream See Rx Instructions .Ro zander 02/23/20 (Gyne-Lotrimin 7) .COMPLEX #45 grams fluconazole 150 mg tablet 150 mg PO .x1 #1 tab 0 (Diflucan) nystatin 100,000 unit/gram topical 1 applicatio topica l BID #30 grams 02/23/20 cream metoclopramide HCl 10 mg tablet 10 mg PO .tid prn PRN nausea and 12/19/20 (Reglan) vomiting #20 tabs pantoprazole 40 mg tablet,delayed 40 mg PO QDAY #14 ta bs 12/19/20 release (Protonix) hydrocodone 5 mg-acetaminophen 325 1 tab PO BID PRN pa in #4 tabs 02/15/24 mg tablet hydrocodone 5 mg-acetaminophen 325 1 tab PO Q6H PRN pa in #10 tabs 03/31/25 mg tablet alprazolam 0.5 mg tablet (Xanax) 0.5 mg PO TID ANXIETY #20 tabs 05/31/25 Allergies Allergy/AdvReac Type Severity Reaction Status Date / Time ibuprofen Allergy Severe lip Verified 05/31/25 04:25 swelling/DIFF BREATHING Review of Systems Review of Systems Systems Reviewed: All systems reviewed, normal except as documented Past Medical History Past Medical History NEUROLOGIC: Positive Neurological Disorders and Migraine CARDIAC: Positive Cardiac Disorders, Hypercholesterolemia and Hypertension RESPIRATORY: Positive Asthma and Bronchitis GASTROINTESTINAL: Positive Gastrointestinal Disorders and Obesity REPRODUCTIVE: Positive Previous Pregnancies ENDOCRINE: Positive Endocrine Disorders and Diabetes Mellitus Type 2 HEMATOLOGIC: Positive Blood Disorders and Anemia PSYCHO/SOCIAL: Positive Depression and Anxiety OTHER HISTORY: Positive Hospitalization and Chicken Pox Family History FAMILY HISTORY: Positive Family Cardiac Disorders and Family Surgery Social History SMOKING STATUS: Never smoker SECOND HAND EXPOSURE: No ED Exam General Limitations: Present no limitations General appearance: Present alert and anxious Head Head exam: Present atraumatic Eye Eye exam: Present normal appearance, PERRL and EOMI ENT ENT exam: Present normal exam, normal oropharynx and mucous membranes moist Neck Neck exam: Present normal inspection, full ROM and trachea midline Chest Chest inspection: Present normal inspection and symmetric chest wall rise Respiratory Respiratory exam: Present normal lung sounds bilaterally Cardiovascular Cardiovascular exam: Present regular rate, normal rhythm and normal heart sounds Abdominal Exam Abdominal exam: Present soft and normal bowel sounds Extremities Exam Extremities exam: Present normal inspection and full ROM Back Exam Back exam: Present normal inspection and full ROM Neurological Exam Neurological exam: Present alert, oriented X3 and CN II-XII intact Psychiatric Psychiatric exam: Present anxious Skin Skin exam: Present warm, dry, intact and normal color Course Quality Measures none Orders Category Date Time Status EKG (ED ONLY) *Do not use* NOW Care 05/31/25 04:20 Completed EKG (ED Only) Stat Exams 05/31/25 04:20 Draft XR chest 2V Stat Exams 05/31/25 04:43 Completed Beta HCG,Quantitative Stat Lab 05/31/25 07:21 Completed CBC Stat Lab 05/31/25 07:21 Completed CMP [Comprehensive Metabolic Panel] Stat Lab 05/31/25 07:21 Completed Drug Screen,Urine Stat Lab 05/31/25 05:19 Completed Troponin I Stat Lab 05/31/25 07:21 Completed Urinalysis, C/S if Indicated Stat Lab 05/31/25 05:19 Completed ALPRazoLAM [Xanax] Med 05/31/25 08:45 Discontinued 0.5 mg PO X1 ONE Diazepam [Valium] Med 05/31/25 07:30 Discontinued 5 mg PO X1 ONE Vital Signs Vital signs: Vital Signs Temperature 98.5 F 05/31/25 04:18 Pulse Rate 110 H 05/31/25 04:18 Respiratory Rate 18 05/31/25 04:18 Blood Pressure 159/95 H 05/31/25 04:18 Pulse Oximetry (%) 95 05/31/25 04:18 Oxygen Delivery Method Room Air 05/31/25 04:18 Pulse ox is 95% on room air which is adequate. Abdominal Pain MDM MDM Narrative MDM Narrative:: Delma Agudelo am scribing for and in the presence of Dr. Garcia. Patient data External records reviewed:: [facility] previous records Clinical information provided by:: patient Social determinants that could affect healthcare access:: none Patient has the following chronic illnesses:: Hypertension, diabetes, hyperlipidemia How is presenting disease/condition affected by chronic disease/condition?: uneffected by Evaluation data The following diagnostics were reviewed and interpreted by me:: lab results, radiology exam(s) and EKG tracing(s) (EKG at 04 26 shows sinus rhythm rate 97, left axis deviation, pulmonary disease pattern, nonspecific T wave abnormality. No acute changes. OK interval was 166 ms QRS duration 102 ms and QT over QTc is 298 over 353 ms) Lab and/or radiology exams considered but not ordered:: None Interpretation Summary: Ordering Physician: Syed Dodsno PA-C Date of Service: 05/31/25 Procedure(s): XR chest 2V Accession Number(s): [id number] cc: Adin Turner MD; Marlene Salinas SENIOR DATA SCIENTIST; Syed Dodson PA-C~ EXAMINATION: PA lateral chest 2 views TECHNIQUE: Upright PA and lateral chest 2 views Date and time: May 31, 2025, 0458 hours, comparison February 28, 2025 INDICATIONS: Cardiac palpitation chest pain 5 days FINDINGS: Normal heart size Lungs are clear. Osseous structures are intact IMPRESSION: No active disease Dictated By: Adin Turner MD Signed By: <Electronically signed by Adin Turner MD in OV> 05/31/25 0729 Medications / Prescriptions Medications or Prescriptions considered but not ordered:: None Medication administrations:: Medication Administration History Discontinued Medications Alprazolam (Alprazolam 0.25 Mg Tablet) 0.5 mg PO X1 ONE Stop: 05/31/25 08:46 Last Admin: 05/31/25 08:52 Dose: 0.5 mg Documented By: TELLY Diazepam (Diazepam 5 Mg Tablet) 5 mg PO X1 ONE; Protocol Stop: 05/31/25 07:31 Last Admin: 05/31/25 07:58 Dose: 5 mg Documented By: TELLY See above Consultations Consultation(s) initiated? (list below): No Diagnosis Differential diagnosis abdominal pain: abdominal pain and other (, anxiety ) Most likely diagnosis given after review of the tests above:: Acute anxiety Admission Indicated Admission indicated?: not indicated Admission Request Was there a request for admission?: No Disposition Plan Disposition Plan: Discharge Discharge Attestation Discharge Attestation: The patient and all family members were given an opportunity to ask questions and understood the discharge instructions. Discharge instructions specifically effects, indications for sooner follow up or return to the emergency department, and the expected course of current diagnosis. Patient condition: Stable Discharge Plan Plan Patient Disposition: HOME (Self Care) Patient condition on transfer: Stable Prescriptions/Referrals Prescriptions/Med Rec: New alprazolam [Xanax] 0.5 mg tablet 0.5 mg PO TID MDD 3 Qty: 20 0RF No Action ferrous sulfate [iron] 325 mg (65 mg iron) Tablet 325 mg PO BID docusate sodium 100 mg Capsule 100 mg PO BID fluticasone propionate 50 mcg/actuation [place],Suspension 2 spray INTRANASAL QDAY loratadine [Claritin] 10 mg Tablet 10 mg PO QDAY PNV no.95-ferrous fumarate-FA [] 28 mg iron- 800 mcg Tablet 1 tab PO QDAY hydrocodone-acetaminophen [Vicodin] 5-300 mg tablet 1 tab PO QID MDD 4 PRN (Reason: pain) Qty: 20 0RF hydrocodone-acetaminophen [Vicodin] 5-300 mg tablet 1 tab PO QID MDD 4 PRN (Reason: headache) Qty: 20 0RF fluconazole [Diflucan] 150 mg tablet 150 mg PO .x1 Qty: 1 0RF clotrimazole [Gyne-Lotrimin 7] 1 % cream See Rx Instructions .ROUTE .COMPLEX Qty: 45 0RF Rx Instructions: 1 applicator full PV QD x 7 days nystatin 100,000 unit/gram cream 1 applicatio TOPICAL BID Qty: 30 0RF metoclopramide HCl [Reglan] 10 mg tablet 10 mg PO .tid prn PRN (Reason: nausea and vomiting) Qty: 20 0RF pantoprazole [Protonix] 40 mg tablet,delayed release (DR/EC) 40 mg PO QDAY Qty: 14 0RF hydrocodone-acetaminophen 5-325 mg tablet 1 tab PO BID MDD 10mg PRN (Reason: pain) Qty: 4 0RF hydrocodone-acetaminophen 5-325 mg tablet 1 tab PO Q6H MDD max 4 tabs per day PRN (Reason: pain) Qty: 10 0RF Referrals: Marlene Salinas, SENIOR DATA SCIENTIST [Primary Care Provider] - In 1 week Problem List Clinical Impression: Acute anxiety Patient/Caregiver Discharge Instructions Discharge Activity: activity as tolerated Education Materials: Anxiety Disorders Tx Therapy Additional Instructions: Follow-up with your doctor next week on Tuesday or Tuesday. Take Xanax as needed for acute stress. Print Language: Samoan Stand Alone Forms: Desi Award Info., Patient Portal Info Letter
[2025-05-31 08:58] VITALS: BP 133/78; PULSE 93; RESP 18; TEMP 36.6; O2SAT 96
== END 2025-05-31 09:00 | disposition home or self-care (01) ==
PROVIDERS: Physician Assistant; Emergency Provider Family Medicine; PCP Registered Nurse
DX: R07.9 Chest pain, unspecified (principal); F41.9 Anxiety disorder, unspecified
CPT/HCPCS: 36415; 71046; 80053; 80307; 81001; 84484; 84702; 85025; 93005; 99283; A9270

== ENCOUNTER 2025-08-12 03:29 | Emergency (ER) | payer OTHER, MEDICAID, SELFPAY ==
[2025-08-12 03:31] VITALS: BMI 26.2
[2025-08-12 03:49] LABS: Collection Type, Urine Clean Catch
[2025-08-12 04:01] LABS: HCG Qualitative,Urine Negative
[2025-08-12 04:06] LABS: Amorphous Crystals,Urine Present (Absent); Bacteria,Urine Rare; Bilirubin,Urine Negative (Negative); Blood,Urine 3+ (Negative); Budding Yeast,Urine Present; Clarity,Urine Turbid (Clear/Hazy); Color,Urine Yellow (Lt Yel-Yel); Glucose, Urine 4+ (Negative); Hyaline Casts,Urine < 1 /hpf (0-1); Ketones,Urine Negative (Negative); Leukocyte Esterase,Urine Positive (Negative); Nitrite,Urine Positive (Negative); PH,Urine 6.5 (5.0-7.0); Protein,Urine 2+ (Neg - Trace); RBC,Urine 125 /hpf (0-3); Specific Gravity,Urine 1.029 (1.001-1.035); Squamous Epithelial Cell,Urine 6 /hpf (0-5); Urobilinogen,Urine Negative mg/dL (0.0-1.0); WBC,Urine 183 /hpf (0-5)
[2025-08-12 04:19] LABS: Culture Indicated,Urine Yes
--- NOTE | 2025-08-12 04:28 | PD.EDABDPN ---
ED Abdominal Pain RME/HPI General Chief Complaint: Abdominal Pain Stated complaint: ABD PAIN, PELVIC PAIN, POSSIBLE TAMPON STUCKED Time seen by provider: 08/12/25 04:11 Arrival date/time: 08/12/25 03:29 40-year-old female with no known medical history presents to the emergency room with a chief complaint of abdominal pain, pelvic pain, and a possible tampon stuck in her vagina x 2 days Source: patient Mode of arrival: ambulatory Limitations: no limitations Related Data Home Medications ?Medication ?Instructions ?Recorded ?Confirmed docusate sodium 100 mg capsule 100 mg PO BID 06/21/18 06/21/18 ferrous sulfate 325 mg (65 mg 325 mg PO BID 06/21/18 06/26/18 iron) tablet (iron) fluticasone propionate 50 2 spray intranasal QDAY 06/21/18 06/21/18 mcg/actuation nasal spray,suspension loratadine 10 mg tablet (Claritin) 10 mg PO QDAY 06/21/18 06/26/18 vit no.95-ferrous 1 tab PO QDAY 06/21/18 06/26/18 fumarate 28 mg-folic acid 800 mcg tablet () Previous Rx's ?Medication ?Instructions ?Recorded hydrocodone 5 mg-acetaminophen 300 1 tab PO QID PRN headache #20 tabs 06/08/18 mg tablet (Vicodin) hydrocodone 5 mg-acetaminophen 300 1 tab PO QID PRN pain #20 tabs 06/29/18 mg tablet (Vicodin) clotrimazole 1 % vaginal cream See Rx Instructions .Route 02/23/20 (Gyne-Lotrimin 7) .COMPLEX #45 grams fluconazole 150 mg tablet 150 mg PO .x1 #1 tab 02/23/20 (Diflucan) nystatin 100,000 unit/gram topical 1 applicatio topical BID #30 grams 02/23/20 cream metoclopramide HCl 10 mg tablet 10 mg PO .tid prn PRN nausea and 12/19/20 (Reglan) vomiting #20 tabs pantoprazole 40 mg tablet,delayed 40 mg PO QDAY #14 tabs 12/19/20 release (Protonix) hydrocodone 5 mg-acetaminophen 325 1 tab PO BID PRN pain #4 tabs 02/14/ mg tablet hydrocodone 5 mg-acetaminophen 325 1 tab PO Q6H PRN pain #10 tabs 03/31/25 mg tablet alprazolam 0.5 mg tablet (Xanax) 0.5 mg PO TID ANXIETY #20 tabs 05/31/25 metronidazole 500 mg tablet 500 mg PO BID 7 days #14 tabs 08/12/25 sulfamethoxazole 800 1 tab PO BID 7 days #14 tabs 08/12/25 mg-trimethoprim 160 mg tablet (Bactrim DS) Allergies Allergy/AdvReac Type Severity Reaction Status Date / Time ibuprofen Allergy Severe lip Verified 08/12/25 03:30 swelling/DIFF BREATHING Review of Systems Review of Systems Systems Reviewed: All systems reviewed, normal except as documented Constitutional Constitutional: Reports system reviewed and no additional complaints, except as documented, Denies fatigue, Denies fever(s), Denies headache(s) and Denies weakness Eyes Eyes: Reports system reviewed and no additional complaints, except as documented, Denies blurry vision and Denies change in vision ENT Ears, Nose, Mouth, and Throat: Reports system reviewed and no additional complaints, except as documented, Denies otalgia, Denies headache(s), Denies nasal congestion, Denies throat swelling and Denies vertigo Cardiovascular Cardiovascular: Reports system reviewed and no additional complaints, except as documented, Denies chest pain, Denies dyspnea and Denies dyspnea on exertion Respiratory Respiratory: Reports system reviewed and no additional complaints, except as documented, Denies chest congestion, Denies cough, Denies dyspnea, Denies dyspnea on exertion and Denies wheezing Gastrointestinal Gastrointestinal: Reports system reviewed and no additional complaints, except as documented, Reports abdominal pain, Reports cramping, Denies nausea and Denies vomiting Genitourinary Genitourinary: Reports system reviewed and no additional complaints, except as documented Musculoskeletal Musculoskeletal: Reports system reviewed and no additional complaints, except as documented and Denies back pain Integumentary/Breasts Skin/Breast: Reports system reviewed and no additional complaints, except as documented and Denies wounds Neurologic Neurologic: Reports system reviewed and no additional complaints, except as documented, Denies confusion, Denies headache(s), Denies lack of coordination, Denies vertigo and Denies weakness Psychiatric Psychiatric: Reports system reviewed and no additional complaints, except as documented, Denies anxiety, Denies confusion, Denies depression, Denies paranoia, Denies suicidal ideation and Denies tactile hallucinations Endocrine Endocrine: Reports system reviewed and no additional complaints, except as documented and Denies fatigue Hematologic/Lymphatic Hematologic/Lymphatic: Reports system reviewed and no additional complaints, except as documented and Denies lymphadenopathy Allergic/Immunologic Allergic/Immunologic: Reports system reviewed and no additional complaints, except as documented, Denies throat swelling, Denies urticaria and Denies wheezing Past Medical History Past Medical History NEUROLOGIC: Positive Neurological Disorders and Migraine; Negative Seizures CARDIAC: Positive Cardiac Disorders, Hypercholesterolemia and Hypertension; Negative Congestive Heart Failure RESPIRATORY: Positive Asthma and Bronchitis; Negative Chronic Obstructive Pulmonary Disease (COPD) GASTROINTESTINAL: Positive Gastrointestinal Disorders and Obesity; Negative Hepatitis or Colorectal Cancer GENITOURINARY: Negative Genitourinary Disorders, Renal Disease or Prostate Cancer REPRODUCTIVE: Positive Previous Pregnancies; Negative Breast Cancer, Endometriosis, Genital Herpes, Gonorrhea, Pelvic Inflammatory Disease, Syphilis, Testicular Cancer or Uterine Prolapse MUSCULOSKELETAL: Negative Musculoskeletal Disorders or Bone Cancer ENDOCRINE: Positive Endocrine Disorders and Diabetes Mellitus Type 2; Negative Diabetes Mellitus Type 1 HEMATOLOGIC: Positive Blood Disorders and Anemia PSYCHO/SOCIAL: Positive Depression and Anxiety OTHER HISTORY: Positive Hospitalization and Chicken Pox; Negative Autoimmune Disease, Blood Transfusions, Blood Transfusion Reaction, Anesthesia Reactions, Organ Transplant, Chemotherapy, Radiation Therapy, Hyperbaric Therapy, MRSA, VRSA, Vancomycin-Resistant Enterococci, Human Immunodeficiency Virus (HIV), Measles, Mumps, Rubella ([place] Measles), Pertussis, Clostridium Difficile, Breast Cancer, Cervical Cancer, Colorectal Cancer, Lung Cancer, Ovarian Cancer, Prostate Cancer or Testicular Cancer Family History FAMILY HISTORY: Positive Family Cardiac Disorders and Family Surgery; Negative Family Psychiatric Problems, Family Respiratory Disorders, Family Gastrointestinal Problems, Family Cancer or Family Anesthesia Reaction Surgical History SURGICAL: Negative Section or Organ Transplant Social History SMOKING STATUS: Never smoker SECOND HAND EXPOSURE: No ED Exam General Limitations: Present no limitations General appearance: Present alert and in no apparent distress Head Head exam: Present atraumatic Eye Eye exam: Present normal appearance, PERRL and EOMI ENT ENT exam: Present normal exam, normal oropharynx and mucous membranes moist Neck Neck exam: Present normal inspection, full ROM and trachea midline Chest Chest inspection: Present normal inspection and symmetric chest wall rise Respiratory Respiratory exam: Present normal lung sounds bilaterally Cardiovascular Cardiovascular exam: Present regular rate, normal rhythm and normal heart sounds Abdominal Exam Abdominal exam: Present soft, tenderness and normal bowel sounds; Absent [place]'s sign or tenderness at [place]Bur[place]'s Point Abdominal tenderness: Present RLQ, LLQ and mild Extremities Exam Extremities exam: Present normal inspection and full ROM Back Exam Back exam: Present normal inspection and full ROM Neurological Exam Neurological exam: Present alert, oriented X3 and CN II-XII intact Psychiatric Psychiatric exam: Present normal affect and normal mood Skin Skin exam: Present warm, dry, intact and normal color Course Quality Measures none Orders Category Date Time Status Pelvic Exam X1 Care 08/12/25 05:20 Active CBC Stat Lab 08/12/25 04:36 Completed CMP [Comprehensive Metabolic Panel] Stat Lab 08/12/25 04:36 Completed Chlamydia/GC/TV - PCR Stat Lab 08/12/25 03:41 Received HCG Qualitative,Urine Stat Lab 08/12/25 03:41 Completed Lipase Stat Lab 08/12/25 04:36 Completed UA, C/S IF [Urinalysis, C/S if Indicated] Stat Lab 08/12/25 03:41 Completed Urine Culture Stat Lab 08/12/25 03:41 Received HYDROcodone*/APAP 5/325 [Lee 5/325] Med 08/12/25 05:28 Discontinued 1 tab PO X1 ONE cefTRIAXone [Rocephin] 1,000 mg Med 08/12/25 05:20 Discontinued Lidocaine 1% Pf Vial 5ml [Xylocaine 1% Pf 5 ml] 2.1 ml IM X1 Vital Signs Vital signs: Vital Signs Temperature 98.1 F 08/12/25 04:31 Pulse Rate 108 H 08/12/25 04:31 Respiratory Rate 19 08/12/25 04:31 Blood Pressure 151/88 H 08/12/25 04:31 Pulse Oximetry (%) 97 08/12/25 04:31 Oxygen Delivery Method Room Air 08/12/25 04:31 Abdominal Pain MDM MDM Narrative MDM Narrative:: 40-year-old female with no known medical history presents to the emergency room with a chief complaint of abdominal pain, pelvic pain, and a possible tampon stuck in her vagina x 2 days Patient is hemodynamically stable and in no apparent distress. Patient is afebrile not tachypneic Physical examination shows some tenderness to the suprapubic area the patient's abdomen. A pelvic examination was completed and there is no visualization of any tampon stuck in her vagina. There is some clear white foul-smelling odor consistent with bacterial vaginosis. CBC CMP were negative for any acute findings. Urinalysis showed a urinary tract infection. Patient was sent home with antibiotics and educated to follow-up with her primary care provider and return to the emergency room for any evidence of worsening signs or symptoms Patient data External records reviewed:: [facility] previous records Clinical information provided by:: patient Social determinants that could affect healthcare access:: none Patient has the following chronic illnesses:: No chronic illness How is presenting disease/condition affected by chronic disease/condition?: no chronic disease Evaluation data The following diagnostics were reviewed and interpreted by me:: lab results and radiology exam(s) Lab and/or radiology exams considered but not ordered:: Labs and radiology exams considered and ordered Interpretation Summary: N/A Medications / Prescriptions Medications or Prescriptions considered but not ordered:: No medication given Medication administrations:: Medication Administration History Discontinued Medications Hydrocodone Bitart/Acetaminophen (Hydrocodone/Apap 5/325 Tablet) 1 tab PO X1 ONE Stop: 08/12/25 05:29 Last Admin: 08/12/25 05:30 Dose: 1 tab Documented By: CVL Ceftriaxone Sodium 1,000 mg/ (Lidocaine HCl 2.1 ml) 0 mg IM X1 ONE Stop: 08/12/25 05:21 Last Admin: 08/12/25 05:26 Dose: 1,000 mg Documented By: CVL No medication given Consultations Consultation(s) initiated? (list below): No Diagnosis Differential diagnosis abdominal pain: abdominal pain, gastroenteritis and other (Bacterial vaginosis/UTI/) Most likely diagnosis given after review of the tests above:: Bacterial vaginosis, UTI Admission Indicated Admission indicated?: not indicated Admission Request Was there a request for admission?: No Disposition Plan Disposition Plan: Discharge Discharge Attestation Discharge Attestation: The patient and all family members were given an opportunity to ask questions and understood the discharge instructions. Discharge instructions specifically effects, indications for sooner follow up or return to the emergency department, and the expected course of current diagnosis. Patient condition: Stable Discharge Plan Plan Patient Disposition: HOME (Self Care) Discharge Disposition comment: Stable Prescriptions/Referrals Prescriptions/Med Rec: New sulfamethoxazole-trimethoprim [Bactrim DS] 800-160 mg tablet 1 tab PO BID 7 Days Qty: 14 0RF metronidazole 500 mg tablet 500 mg PO BID 7 Days Qty: 14 0RF No Action ferrous sulfate [iron] 325 mg (65 mg iron) Tablet 325 mg PO BID docusate sodium 100 mg Capsule 100 mg PO BID fluticasone propionate 50 mcg/actuation [place],Suspension 2 spray INTRANASAL QDAY loratadine [Claritin] 10 mg Tablet 10 mg PO QDAY PNV no.95-ferrous fumarate-FA [] 28 mg iron- 800 mcg Tablet 1 tab PO QDAY hydrocodone-acetaminophen [Vicodin] 5-300 mg tablet 1 tab PO QID MDD 4 PRN (Reason: pain) Qty: 20 0RF hydrocodone-acetaminophen [Vicodin] 5-300 mg tablet 1 tab PO QID MDD 4 PRN (Reason: headache) Qty: 20 0RF fluconazole [Diflucan] 150 mg tablet 150 mg PO .x1 Qty: 1 0RF clotrimazole [Gyne-Lotrimin 7] 1 % cream See Rx Instructions .ROUTE .COMPLEX Qty: 45 0RF Rx Instructions: 1 applicator full PV QD x 7 days nystatin 100,000 unit/gram cream 1 applicatio TOPICAL BID Qty: 30 0RF metoclopramide HCl [Reglan] 10 mg tablet 10 mg PO .tid prn PRN (Reason: nausea and vomiting) Qty: 20 0RF pantoprazole [Protonix] 40 mg tablet,delayed release (DR/EC) 40 mg PO QDAY Qty: 14 0RF hydrocodone-acetaminophen 5-325 mg tablet 1 tab PO BID MDD 10mg PRN (Reason: pain) Qty: 4 0RF hydrocodone-acetaminophen 5-325 mg tablet 1 tab PO Q6H MDD max 4 tabs per day PRN (Reason: pain) Qty: 10 0RF alprazolam [Xanax] 0.5 mg tablet 0.5 mg PO TID MDD 3 Qty: 20 0RF Problem List Clinical Impression: Urinary tract infection, Bacterial vaginosis Patient/Caregiver Discharge Instructions Education Materials: ED CYSTITIS Female Adult, ED Bacterial Vaginosis (BV) Additional Instructions: Please follow-up with your primary care provider in the next 24 to 48 hours Antibiotics are sent to your pharmacy please pick them up and take them as indicated For any evidence of worsening signs or symptoms return to the emergency room immediately Print Language: Slovenian Stand Alone Forms: Desi Award Info., Work/School Release, Patient Portal Info Letter PA/RAW STOCK DRIER TENDER Supervising Physician PA/RAW STOCK DRIER TENDER Supervising Physician: Dr. Reinaldo Leija
[2025-08-12 04:31] VITALS: BP 151/88; PULSE 108; RESP 19; TEMP 36.7; O2SAT 97
[2025-08-12 05:05] LABS: Basophils # (Auto) 0.0 Thou/mm3 (0.0-0.2); Basophils % (Auto) 0 % (0-2.5); Eosinophils # (Auto) 0.1 Thou/mm3 (0.0-0.5); Eosinophils % (Auto) 1 % (0-10); Hematocrit 39.7 % (36.0-46.0); Hemoglobin 13.8 g/dL (12.0-16.0); Immature Granulocytes Auto 0.04 Thou/mm3 (0.00-0.00); Lymphocytes # (Auto) 3.4 Thou/mm3 (1.0-4.8); Lymphocytes % (Auto) 26 % (10-50); Mean Corpuscular HGB Conc 34.8 g/dl (31.0-37.0); Mean Corpuscular Hemoglobin 30.5 pg (25.0-35.0); Mean Corpuscular Volume 88 fL (80-100); Monocytes # (Auto) 0.8 Thou/mm3 (0.0-0.8); Monocytes % (Auto) 7 % (0-12); Neutrophils # (Auto) 8.4 Thou/mm3 (1.8-7.7); Neutrophils % (Auto) 66 % (37-80); Nucleated Red Blood Cell # 0.00 Thou/mm3 (0.00-0.00); Nucleated Red Blood Cell % 0 /100 WBC (0); Platelet Count 262 Thou/mm3 (140-440); RDW Standard Deviation 42.7 fL (36.4-46.3); Red Blood Count 4.53 Miln/mm3 (4.00-5.20); White Blood Count 12.8 Thou/mm3 (3.6-11.0)
[2025-08-12] MEDS: HYDROcodone/APAP 5/325 TABLET 1 TAB PO (05:30)
[2025-08-12 05:39] LABS: Alanine Aminotransferase 30 U/L (10-49); Albumin, Serum 4.5 gm/dL (3.5-5.0); Albumin/Globulin Ratio 1.6 (1.2-2.2); Alkaline Phosphatase 138 U/L (46-116); Anion Gap 13 (7-16); Aspartate Amino Transferase 17 U/L (0-34); BUN/Creatinine Ratio 13 Ratio (12-20); Bilirubin,Total 0.6 mg/dL (0.3-1.2); Blood Urea Nitrogen 9 mg/dL (9-23); Calcium 9.2 mg/dL (8.3-10.6); Calcium (Corrected) 9.2 mg/dL (8.5-10.1); Carbon Dioxide 26.5 mMol/L (20.0-31.0); Chloride 100 mMol/L (98-107); Creatinine (Component) 0.7 mg/dL (0.6-1.3); Estimated Creatinine Clearance 121.5 mL/min (>60); Globulin 2.9 gm/dL (2.3-3.5); Glucose 329 mg/dL (74-106); Lipase 39 U/L (12-53); Osmolality,Calculated 289 (275-295); Potassium 3.6 mMol/L (3.4-5.1); Sodium 139 mMol/L (136-145); Total Protein 7.4 gm/dL (5.7-8.2); eGFR > 60 See Note
[2025-08-12 06:27] VITALS: RESP 16
== END 2025-08-12 06:28 | disposition home or self-care (01) ==
LOC: SERX 06:17
PROVIDERS: Emergency Provider Emergency Medicine; PCP Physician Assistant Medical
DX: N39.0 Urinary tract infection, site not specified (principal); N76.0 Acute vaginitis; B96.89 Other specified bacterial agents as the cause of diseases classified elsewhere
CPT/HCPCS: 36415; 80053; 81001; 81025; 83690; 85025; 87086; 87491; 87591; 87661; 96372; 99283; J0696; J3490; A9270